=== PATIENT | male | born 1945 | race Caucasian/White ===

== ENCOUNTER → 2025-07-12 10:46 | Outpatient (REF) | payer MEDICARE, SELFPAY ==
[2025-07-12 12:37] LABS: Hematocrit 40.9 % (39.0-52.0); Hemoglobin 13.5 g/dL (13.0-18.0); Mean Corp Hgb Conc. 33.0 g/dL (33.0-37.0); Mean Corpuscular Volume 85.9 fL (80.0-94.0); Nucleated Red Blood Cells % 0 % (-); Red Cell Dist. Width 15.3 % (11.5-14.5)
[2025-07-12 13:04] LABS: Platelet Count 86 10^3/uL (130-400)
[2025-07-12 14:00] LABS: ALT (SGPT) 21 U/L (0-50); AST (SGOT) 24 U/L (17-59); Albumin 4.1 g/dl (3.5-5.0); Alkaline Phosphatase 147 U/L (38-126); Blood Urea Nitrogen 29 mg/dl (9-20); Calcium 9.1 mg/dl (8.4-10.2); Carbon Dioxide 29 mmol/L (22-30); Chloride 102 mmol/L (98-107); Glucose 104 mg/dl (70-99); Magnesium 2.3 mg/dl (1.6-2.3); Potassium 4.6 mmol/L (3.5-5.1); Sodium 140 mmol/L (135-145); Total Protein 7.9 g/dl (6.3-8.2); eGFR > 60.00
== END ==
LOC: SDSPAT 10:46
PROVIDERS: ATTENDING PHYSICIAN Internal Medicine Cardiovascular Disease; FAMILY PHYSICIAN Internal Medicine; OTHER PHYSICIAN Internal Medicine Cardiovascular Disease
DX: I44.2 Atrioventricular block, complete (principal)
CPT/HCPCS: 36415; 80053; 83735; 85025; 93005

== ENCOUNTER 2025-07-24 10:19 | Day surgery (SDC) | payer MEDICARE, SELFPAY ==
[2025-07-12 12:06] VITALS: BMI 39.7
[2025-07-24] VITALS (14 sets, daily range): BP systolic 92–149; BP diastolic 50–96; BMI 39.7
--- NOTE | 2025-07-24 11:36 | W.PN.UPDATE ---
Update Note
Progress Note Update
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 Recent admission for congestive heart failure and by report ejection fraction of 30% and 100% V pacing for complete heart block after a dual-chamber
pacemaker placement. 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 Discussed possibility of surgical evaluation if the left subclavian is not patent. If the subclavian is patent we will
proceed to device upgrade I discussed a 100,000 risk of and a 1% risk of pneumothorax infection tamponade or bleeding. We also discussed the 95% chance that we will find a amenable anatomy either in the coronary sinus or conduction system. I
took time to answer all questions patient signed informed consent.
--- NOTE | 2025-07-24 13:57 | ITS.CL.PACE ---
Device Sales Consultant - Pacemaker Implant
Pacemaker Implant
Procedure Report:
Date of Procedure: 07/24/2025
Patient : 1945
Procedures: Insertion of left ventricular lead for cardiac resynchronization
Indication: 1) Class III CHF, LVEF 30%, 2) 100% paced QRS greater than 150 ms and recent hospitalization at [facility] for acute congestive heart failure
Implants:
Pulse Generator: [employer]; Model# U128; Serial#[id number]. Implanted today
Atrial Lead: [employer]: Model# 7741; Serial# [id number] implanted 2018
Right Ventricular Lead: [employer]; Model# 7742; Serial# [id number]. Implanted 2018
Left Ventricular Lead: [employer]; Model# 4798; Serial# [id number] Implanted today
Explants:
Pulse generator: [employer] model number L3 3 1 serial #[id number] implanted 2018
Technique: The patient was prepped and draped in the usual fashion. The left subclavian system was noted to be patent. Local anesthetic was applied to the left prepectoral subcutaneous tissue. A 4 inch incision was made. The left axillary vein was
accessed��without difficulty. A subcutaneous pocket was CREATED. Hemostasis was excellent. The leads were introduced with hemostatic peel away introducer sheaths. The coronary sinus was accessed with the aid of the Attain system. There was a
paucity of coronary sinus vessels though there was a high lateral branch which were utilized for implant. There was also a middle cardiac vein was not which was not utilized. The left ventricular lead was placed in the high lateral position. The
more distal portion of the vein was accessed but had higher thresholds and the lead was pulled back towards the base in the high lateral vein and fixated. Thresholds were elevated at multiple vectors but consistent at 4.5 V at 1.5 ms.. 10 volt
pacing did not capture the diaphragm. The lead was connected to cables and the chronic atrial and ventricular leads were removed from the chronic generator and attached to the new biventricular pacemaker generator. The LV lead was connected to the
new generator and all leads were tested.. The leads were appropriately attached to the device. The pocket was irrigated with antibiotic solution. The device and leads were placed in the pocket and the device was secured to pectoralis muscle and
facia. The incision was closed with absorbable sutures. The estimated blood loss was minimal. There were no complications. Device based testing was performed as described below. IV contrast total: 30 cc.
System Analysis:
RA lead: P: 2.1 mV; Threshold: 0.7 V @ 0.5 ms; Impedance: 620 ohms.
RV lead: R: Paced mV; Threshold: 0.8 V @ 0.5 ms; Impedance: 636 ohms.
LV lead: R: Paced mV; Threshold: 4.5 V @1.5 ms; consistent@LV tip 1 to RV, LV 1-2, LV 1-4, and LV 1 to can impedance: 840 ohms. Programmed output to 5.5 V at 1.5 ms on the LV lead and we will minimize safety margin on the right atrial lead to
extend battery
Final Programming: Adam: DDDR 60-120.
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
Recommendation: Routine post device
cc: Dr. Jeffry Gold
--- NOTE | 2025-07-24 17:08 | PTCARENOTE ---
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 Left chest wall aquacell with scant dot of old drainage noted, surrounding area soft to palpation, no ecchymosis, radial pulse palpable. Vpaced on telemetry. Postop ECG completed. LUE
immobilizer in place. SaO2 on 4L NC 94%. The patient denies pain. Anxious to be able to eat and ambulate. Reviewed activity restrictions with patient. Patient oriented to room and unit. Call porter within reach. Bed in lowest position wheels locked.
Care ongoing.
[2025-07-24] MEDS: PLAQUENIL 200 MG PO (19:43)
[2025-07-24] MEDS: NEURONTIN 300 MG PO (19:44)
[2025-07-24] MEDS: ANCEF 5 IV (19:44)
[2025-07-24] MEDS: TOPROL XL 100 MG PO (22:10)
[2025-07-24] MEDS: MELATONIN 5 MG PO (22:10)
--- NOTE | 2025-07-24 23:25 | PTCARENOTE ---
Pt VPaced on monitor, VSS. Left chest post surgery dsg with small drainage. Pt denies pain or discomfort. Immobilizer in place, pt instructed to wear it for 24 hrs. Pt instructed to use call porter when OOB or chair.
[2025-07-25 03:27] VITALS: BP 123/62
[2025-07-25 04:08] LABS: Hematocrit 37.1 % (39.0-52.0); Hemoglobin 12.3 g/dL (13.0-18.0); Mean Corp Hgb Conc. 33.2 g/dL (33.0-37.0); Mean Corpuscular Volume 87.3 fL (80.0-94.0); Red Cell Dist. Width 15.4 % (11.5-14.5)
[2025-07-25 04:14] LABS: Blood Urea Nitrogen 18 mg/dl (9-20); Calcium 8.8 mg/dl (8.4-10.2); Carbon Dioxide 30 mmol/L (22-30); Chloride 103 mmol/L (98-107); Estimated Creatinine Clearance 109 ml/min; Glucose 101 mg/dl (70-99); Magnesium 2.3 mg/dl (1.6-2.3); Potassium 4.6 mmol/L (3.5-5.1); Sodium 136 mmol/L (135-145); eGFR > 60.00
[2025-07-25] MEDS: ANCEF 5 IV (04:36)
[2025-07-25] MEDS: SYMBICORT 160/4.5 MCG INHALER 2 PUFF INH (07:22)
[2025-07-25] MEDS: SPIRIVA RESPIMAT 2.5 MCG 2 PUFF INH (07:23)
--- NOTE | 2025-07-25 07:30 | PTCARENOTE ---
Assumed care of patient at change of shift. Patient is AAOx3, VSS. A-V Paced on tele. 96% on 2L O2. Left Chest aquacel dressing marked with drainage, surrounding skin intact. +1 B/L lower extremity pitting edema. Patient denies pain.
[2025-07-25 07:34] VITALS: BP 120/79
[2025-07-25 08:06] LABS: Platelet Count 86 10^3/uL (130-400)
[2025-07-25] MEDS: DELTASONE 5 MG PO (08:43)
[2025-07-25] MEDS: COZAAR 25 MG PO (08:43)
[2025-07-25] MEDS: LOW STRENGTH ASPIRIN 81 MG PO (08:43)
[2025-07-25] MEDS: LIPITOR 80 MG PO (08:43)
[2025-07-25] MEDS: PROSCAR 5 MG PO (08:44)
[2025-07-25] MEDS: NEURONTIN 300 MG PO (08:44)
[2025-07-25] MEDS: PLAQUENIL 200 MG PO (08:44)
[2025-07-25] MEDS: SINGULAIR 10 MG PO (08:45)
--- NOTE | 2025-07-25 09:04 | W.PN.CARDCBS ---
Addendum entered and electronically signed by Navarro Gaytan MD 07/25/25 10:19:
patient seen and examined
agree with SALES TRAINING MANAGER note and assessment
agree with SALES TRAINING MANAGER plan
reviewed am interrogation details with [facility] partner. Capture is 4.0V at 1.5msec at LV1-RV tip configuration. Increased output in that configuration to 6.0V at 1.5ms with lower safety margins on the chronic leads to preserve battery. Shortening AV
delay to suppress PVC burden which was pre-existing. Mild hematoma noted which improved with some pressure. No pain. Holding plavix for 5 days. Records request from his recent hospitalization is being pursued through our medical records department.
Also we are switching his metoprolol to XL, advocated for compliance with lasix and added low dose losartan.
exam:
mild left dpg hematoma
telemetry reviewed
cxr reviewed with stable lead position
jvp 7
cor regular no m
lungs diminished but clear
abd soft nt nd
trace ext edema
IMPRESSION:
Chronic systolic HFrEF, 30%
Ischemic Cardiomyopathy
CAD, prior CABG x3 (2008)
s/p Bi-V PPM upgrade, 07/24/25
Severe COPD
Cor Pulmonale
ANN/CPAP
Tobacco abuse
HTN
HLD
Thrombocytopenia
Metabolic syndrome
Peripheral neuropathy w/ambulatory dysfunction
PLAN:
Device interrogation noted-increased output on LV lead. Capture is 4.0V at 1.5ms in LV1-RV tip.
Device site with hematoma as noted- managed with compression but with ecchymosis. Resume plavix in 5d
Post CXR w/stable lead position, no pneumothorax
Stable thrombocytopenia- will hold plavix post procedure and resume on 07/29
Will add GDMT for HF- had started furosemide with last hospitalization but is non compliant with daily use. Urged compliance.
Continue daily furosemide 40mg, stop metoprolol tartrate and start metoprolol succinate 100mg daily, start losartan 25mg daily
BMP, CBC in 1 week
Continue steroid, home O2 for COPD- managed per Pulmonary
Importance of medical compliance and followup stressed with patient
Activity limitations reviewed with pt
Incision check next week at [facility] and follow with Dr. Gold thereafter
home today after device interrogation
Original Note:
Today's Communication / Plan
-
Device interrogation this morning
GDMT for HF- metoprolol succinate, losartan, furosemide
medical compliance and post device activity limitations stressed
labwork in 1 week
incision check in 1 week
followup w/Dr. Gold
home later today
Impression / Plan
-
PCP: Aime Hollingsworth MD
CDY: Jeffry Gold MD
79 y/o, progressive heart failure with recent admission to [facility], echo with drop in EF from 55% to 30%, medically managed with diuresis. VANG/Hypoxia requiring continuous O2 at home- this is multifactorial with severe COPD, cor pulmonale and prior
tobacco abuse, obesity. CHB w/prior DC PPM implant. He admits to not always taking furosemide and using the oxygen. Now s/p Bi-V PPM upgrade. Moderate ecchymosis and hematoma distal to dressing this morning, improved with manual compression for
about 10 minutes.
IMPRESSION:
Chronic systolic HFrEF, 30%
Ischemic Cardiomyopathy
CAD, prior CABG x3 (2008)
s/p Bi-V PPM upgrade, 07/24/25
Severe COPD
Cor Pulmonale
ANN/CPAP
Tobacco abuse
HTN
HLD
Thrombocytopenia
Metabolic syndrome
Peripheral neuropathy w/ambulatory dysfunction
PLAN:
Tele- V/AV paced w/underlying SR, bigemeny and frequent PVCs
device to be interrogated by [employer] this morning
Device site with hematoma as noted- managed with compression but with ecchymosis
Post CXR w/stable lead position, no pneumothorax
Stable thrombocytopenia- will hold plavix post procedure and resume on 07/29
Will add GDMT for HF- had started furosemide with last hospitalization but is non compliant with daily use.
Continue daily furosemide 40mg, stop metoprolol tartrate and start metoprolol succinate 100mg daily, start losartan 25mg daily
BMP, CBC in 1 week
Continue steroid, home O2 for COPD- managed per Pulmonary
Importance of medical compliance and followup stressed with patient
Activity limitations reviewed with pt
Incision check next week at [facility] and follow with Dr. Gold thereafter
home today after device interrogation
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
Subjective
Date of Service: July 25, 2025
Denies cp/palps/dyspnea
mild discomfort at device site
oob ambulating
Objective
Labs:
07/25/25 03:36
07/25/25 03:36
Labs
Hgb 12.3 g/dL (13.0-18.0) L 07/25/25 03:36
Hct 37.1 % (39.0-52.0) L 07/25/25 03:36
Plt Count 86 10^3/uL (130-400) L 07/25/25 03:36
Sodium 136 mmol/L (135-145) 07/25/25 03:36
Potassium 4.6 mmol/L (3.5-5.1) 07/25/25 03:36
BUN 18 mg/dl (9-20) 07/25/25 03:36
Creatinine 0.8 mg/dL (0.7-1.3) 07/25/25 03:36
Glucose 101 mg/dl (70-99) H 07/25/25 03:36
Vital Signs and I&O:
Vital Signs
Temp Pulse Resp BP Pulse Ox
97.6 F 74 18 120/79 96
07/25/25 07:31 07/25/25 08:43 07/25/25 07:31 07/25/25 08:43 07/25/25 07:31
Vital Signs
Temp Pulse Resp BP Pulse Ox
97.6 F 74 18 120/79 96
07/25/25 07:31 07/25/25 08:43 07/25/25 07:31 07/25/25 08:43 07/25/25 07:31
Intake & Output
07/23/25 07/24/25 07/25/25 07/26/25
06:59 06:59 06:59 06:59
Intake Total 400 / 400
Balance 400 / 400
Physical Exam
Physical Exam
AAOx3, MAEE 5/5
RRR S1 S2 no murmurs
Decreased bibasilar, non labored
Left ACW w/aquacel dressing CDI, no bleeding, moderate distal HT and ecchymosis, improved with compression
soft obese abd, non tender
bilat extremities w/palpable distal pulses, no edema
--- NOTE | 2025-07-25 09:37 | W.DS.TRANS ---
DC Summary - Wrapper Caser
-
Discharge Instructions:
Discharge Diagnosis/Procedures BiV Pacemaker upgrade
Diet Low Cholesterol,2 Gram Sodium
Driving Restrictions No driving for 1 week
Bathing Restrictions OK to Shower
Blood Work BMP in 1 week- results to Dr. Gold
Specialty Instructions Weigh Daily
Instructions:
Stand-Alone Forms: DC Inst - Implanted Device
Changes to Home Medications: Yes
Discharge Medications:
DC Medications w/original date entered in [facility]
atorvastatin 80 mg tablet 80 mg PO DAILY 07/11/25
clopidogrel 75 mg tablet (Plavix) 75 mg PO DAILY 07/11/25
gabapentin 300 mg capsule 300 mg PO BID 07/11/25
hydroxychloroquine 200 mg tablet 200 mg PO BID 07/11/25
montelukast 10 mg tablet 10 mg PO DAILY 07/11/25
prednisone 5 mg tablet 5 mg PO DAILY 07/11/25
albuterol sulfate 90 mcg/actuation aerosol inhaler 2 puff inhalation 6XD PRN SOB/asthma 07/24/25
aspirin 81 mg tablet 81 mg PO DAILY 07/24/25
finasteride 5 mg tablet 5 mg PO DAILY 07/24/25
fluticasone fur. 200 mcg-umeclid 62.5 mcg-vilant 25 mcg inhalat.powder (Trelegy Ellipta) 1 inh inhalation DAILY 07/24/25
vit C 250 mg-vit E 90 mg-zinc 40 mg-copper 1 wt-itjlii-auyqwh capsule (PreserVision AREDS-2) 1 tab PO BID 07/24/25
furosemide 40 mg tablet 40 mg PO DAILY 07/25/25
losartan 25 mg tablet 25 mg PO DAILY #30 tabs 07/25/25
metoprolol succinate 100 mg tablet,extended release 24 hr 100 mg PO HS #30 tabs 07/25/25
Home Medication Changes
STOP: metoprolol tartrate
NEW: metoprolol succinate, losartan
Pending Results: No
Total time spent discharging patient (in min): 60
[2025-07-25 11:14] VITALS: BP 120/69
--- NOTE | 2025-07-25 12:25 | CM ---
Patient previously independent, lives with in 2 story home, has CPAP. No discharge needs. Plan to DC home today.
--- NOTE | 2025-07-25 12:57 | PTCARENOTE ---
Patient discharged to home. Instructions reviewed, verbalized understanding. Escorted to main lobby in wheelchair.
[2025-07-26 19:18] LABS: Hepatitis C Antibody Negative (Negative)
== END 2025-07-25 13:46 | disposition home or self-care (01) ==
LOC: CATH 10:19
PROVIDERS: Nurse Practitioner Adult Health; ATTENDING PHYSICIAN Internal Medicine Cardiovascular Disease; FAMILY PHYSICIAN Internal Medicine; OTHER PHYSICIAN Internal Medicine Cardiovascular Disease
DX: Z45.010 Encounter for checking and testing of cardiac pacemaker pulse generator [battery] (principal); I50.42 Chronic combined systolic (congestive) and diastolic (congestive) heart failure; I27.81 Cor pulmonale (chronic); I25.10 Atherosclerotic heart disease of native coronary artery without angina pectoris; Z95.1 Presence of aortocoronary bypass graft; G47.33 Obstructive sleep apnea (adult) (pediatric); I11.0 Hypertensive heart disease with heart failure; R09.02 Hypoxemia; I44.2 Atrioventricular block, complete; E78.5 Hyperlipidemia, unspecified; R26.2 Difficulty in walking, not elsewhere classified; G62.9 Polyneuropathy, unspecified; J43.9 Emphysema, unspecified; N40.0 Benign prostatic hyperplasia without lower urinary tract symptoms; Z68.39 Body mass index [BMI] 39.0-39.9, adult; M48.00 Spinal stenosis, site unspecified; Z91.199 Patient's noncompliance with other medical treatment and regimen due to unspecified reason; D69.6 Thrombocytopenia, unspecified; E88.810 Metabolic syndrome; I25.5 Ischemic cardiomyopathy; I45.10 Unspecified right bundle-branch block; I49.1 Atrial premature depolarization; I49.3 Ventricular premature depolarization; Z79.82 Long term (current) use of aspirin; Z99.81 Dependence on supplemental oxygen; Z79.899 Other long term (current) drug therapy; Z79.52 Long term (current) use of systemic steroids; E66.01 Morbid (severe) obesity due to excess calories; Z79.02 Long term (current) use of antithrombotics/antiplatelets; Z87.891 Personal history of nicotine dependence
CPT/HCPCS: 33229; 33225; 71045; 80048; 83735; 85027; 86803; 93005; 94640; C1730; C1769; C1900; C2621; Q9967